=== PATIENT | female | born 2000 | race Hispanic/Latino ===

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

== ENCOUNTER 2021-12-16 19:53 | Emergency (ER) | payer OTHER ==
[2021-12-16] MEDS ORDERED: ONDANSETRON 4 MG/2 ML VIAL ONE (20:48)
[2021-12-16] MEDS ORDERED: LIDOCAINE VISCOUS 2% SOLN 15 ML UDC ONE (20:48)
[2021-12-16] MEDS ORDERED: MAGNES/ALUMIN/SIMET 30ML UCUP ONE (20:50)
[2021-12-16 21:02] LABS: Hematocrit 37.8 % (36.0-45.0)
[2021-12-16 21:03] LABS: Absolute Lymphocytes (CBC) 1.7 K/uL (0.7-4.9); Lymphocytes % 32.5 % (15.3-44.8); MPV 7.7 fL (7.6-11.3)
[2021-12-16 21:27] LABS: ALT/SGPT 17 U/L (12-78); AST/SGOT 16 U/L (15-37); Albumin 3.4 g/dL (3.4-5.0); Alkaline Phosphatase 69 U/L (45-117); BUN Blood Urea Nitrogen 18 mg/dL (7-18); Bicarbonate 26 mmol/L (21-32); Bilirubin Direct < 0.1 mg/dL (0-0.2); Bilirubin Total 0.4 mg/dL (0.2-1.0); Glucose Level 95 mg/dL (74-106); Lipase 83 U/L (73-393); Potassium 3.5 mmol/L (3.5-5.1); Protein, Total 6.8 g/dL (6.4-8.2); Sodium Level 139 mmol/L (136-145)
[2021-12-16 22:53] LABS: Urine Bacteria 20-50 /HPF (<20); Urine RBC <5 /HPF (NONE SEEN); Urine Urothelial Cells <5 /HPF (NONE SEEN)
--- NOTE | 2021-12-16 23:01 | ER ---
Nurse's Notes [facility] Name: Nehemiah Alvarado Age: 21 yrs Sex: Female : 2000 Arrival Date: 12/16/2021 Time: 19:55 Bed 20 Private MD: Diagnosis: Nausea;Abdominal pain, unspecified Presentation: 12/16 20:20 Chief complaint: Patient states: lower abdominal pain; vomiting, feeling sleepy and jh5 nauseous x1 month. Coronavirus screen: Vaccine status: Patient reports being unvaccinated. Client denies travel out of the [place] in the last 14 days. Ebola Screen: Patient negative for fever greater than or equal to 101.5 degrees Fahrenheit, and additional compatible Ebola Virus Disease symptoms Patient denies exposure to infectious person. Patient denies travel to an Ebola-affected area in the 21 days before illness onset. Initial Sepsis Screen: Does the patient meet any 2 criteria? No. Patient's initial sepsis screen is negative. Does the patient have a suspected source of infection? No. Patient's initial sepsis screen is negative. Risk Assessment: Do you want to hurt yourself or someone else? Patient reports no desire to harm self or others. Onset of symptoms was November 2021. 20:20 Method Of Arrival: Ambulatory [facility] 20:20 Acuity: RENEE 3 jh5 Triage Assessment: 20:23 General: Appears in no apparent distress. comfortable, slender, well groomed, well jh5 developed, Behavior is calm, cooperative, appropriate for age. Pain: Complains of pain in abdomen. 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 - Social history:: Smoking status: Patient denies any tobacco usage or history of. Patient uses street drugs, marijuana. - Family history:: not pertinent. - Hospitalizations: : No recent hospitalization is reported. Screenin:33 Abuse screen: Denies threats or abuse. Denies injuries from another. Nutritional lg3 screening: No deficits noted. Tuberculosis screening: No symptoms or risk factors identified. Fall Risk None identified. Assessment: 20:33 General: Appears in no apparent distress. comfortable, Behavior is calm, cooperative, lg3 Denies pain at this time but reports generalized abdominal pain earlier today. Neuro: No deficits noted. Level of Consciousness is awake, alert, obeys commands, Oriented to person, place, time, situation, Gait is steady, Speech is normal. Cardiovascular: No deficits noted. Capillary refill < 3 seconds JVD is absent Patient's skin is warm and dry. Respiratory: No deficits noted. Airway is patent Trachea midline Respiratory effort is even, unlabored, Respiratory pattern is regular, symmetrical. GI: Abdomen is flat, non-distended, Bowel sounds present X 4 quads. Reports nausea, vomiting. : No deficits noted. No signs and/or symptoms were reported regarding the genitourinary system. EENT: No deficits noted. No signs and/or symptoms were reported regarding the EENT system. Derm: No deficits noted. No signs and/or symptoms reported regarding the dermatologic system. Skin is intact, is healthy with good turgor, Skin is dry. Musculoskeletal: No deficits noted. No signs and/or symptoms reported regarding the musculoskeletal system. Circulation, motion, and sensation intact. Range of motion: intact in all extremities. 21:16 Reassessment: Patient appears in no apparent distress at this time. No changes from lg3 previously documented assessment. Patient and/or family updated on plan of care and expected duration. Pain level reassessed. Patient is alert, oriented x 3, equal unlabored respirations, skin warm/dry/pink. 23:11 Reassessment: Patient appears in no apparent distress at this time. No changes from lg3 previously documented assessment. Patient and/or family updated on plan of care and expected duration. Pain level reassessed. Patient is alert, oriented x 3, equal unlabored respirations, skin warm/dry/pink. Patient denies pain at this time. Patient states feeling better. Patient states symptoms have improved. Vital Signs: 20:20 BP 97 / 66; Pulse 95; Resp 18; Temp 98.1; Pulse Ox 99% ; Weight 68.95 kg; Height 5 ft. jh5 8 in. (172.72 cm); Pain 3/10; 20:35 BP 108 / 79; Pulse 69; Resp 18 S; Pulse Ox 96% on R/A; Pain 0/10; lg3 21:20 BP 101 / 68; Pulse 59; Resp 16 S; Pulse Ox 99% on R/A; lg3 23:11 BP 98 / 68; Pulse 57; Resp 18 S; Pulse Ox 100% on R/A; lg3 20:20 Body Mass Index 23.11 (68.95 kg, 172.72 cm) [facility] ED Course: 19:55 Patient arrived in ED. 5 20:23 Triage completed. 5 20:23 Arm band placed on right wrist. 5 20:29 Ema Hernandez, RN is Primary Nurse. lg3 20:31 Dylan Quintero MD is Attending Physician. rn 20:33 Patient has correct armband on for positive identification. Bed in low position. Call lg3 light in reach. Side rails up X 1. 20:55 Initial lab(s) drawn, by fl, sent to lab. Inserted saline lock: 22 gauge in right lt3 antecubital area, using aseptic technique. 20:57 Basic Metabolic Panel Sent. lg3 20:57 CBC with Diff Sent. lg3 20:57 Hepatic Function Sent. lg3 20:57 Lipase Sent. lg3 21:49 Urine Microscopic Only Sent. lg3 22:04 CT Abd/Pelvis - IV Contrast Only In Process Unspecified. EDMS 23:12 No provider procedures requiring assistance completed. IV discontinued, intact, lg3 bleeding controlled, No redness/swelling at site. Pressure dressing applied. Administered Medications: 20:56 Drug: Zofran (Ondansetron) 4 mg Route: IVP; Site: right antecubital; lg3 20:56 Follow up: Response: No adverse reaction lg3 20:56 Drug: GI Cocktail without - (Maalox Suspension 30 ml, Lidocaine Liquid 2 % 15 lg3 ml) Route: PO; 20:56 Follow up: Response: No adverse reaction lg3 Outcome: 23:01 Discharge ordered by . rn 23:12 Discharged to home ambulatory. lg3 23:12 Condition: improved 23:12 Discharge instructions given to patient, Instructed on discharge instructions, follow up and referral plans. 23:13 Patient left the ED. lg3 Signatures: Dispatcher [employer] EDMS Dylan Quintero MD MD rn Gibson, Lacie RN COLIN lg3 Racquel Parrish RN RN 5 Anisa Hernandez 5 Jesenia Fernandez lt3 Corrections: (The following items were deleted from the chart) 20:38 20:33 General: Appears in no apparent distress. comfortable, Behavior is calm, lg3 cooperative, lg3 20:38 20:33 Pain: Denies pain. lg3 lg3
--- NOTE | 2021-12-16 23:01 | EDPHYS ---
Physician Documentation [facility] Name: Nehemiah Alvarado Age: 21 yrs Sex: Female : 2000 Arrival Date: 12/16/2021 Time: 19:55 Bed 20 Private MD: ED Physician Dylan Quintero HPI: 12/16 21:17 This 21 yrs old Female presents to ER via Ambulatory with complaints of nausea rn x 1 month. 21:17 The patient presents to the emergency department with nausea. Onset: The rn symptoms/episode began/occurred 1 month(s) ago. Possible causes: unknown. The symptoms are aggravated by nothing. The symptoms are alleviated by nothing. Associated signs and symptoms: Pertinent positives: nausea, vomiting, Pertinent negatives: fever, GI bleeding, hematuria. Severity of symptoms: At their worst the symptoms were mild in the emergency department the symptoms are unchanged. The patient has not experienced similar symptoms in the past. The patient has not recently seen a physician. Pt reports 1-2 months of nausea, threw up today for first time, denies obvious pattern. No fever. Reports upper abd pain. + suffers from acid reflux. Reports just finished last menstrual period. NO trauma. Reports came today because she threw up today and hadn't before. . 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 - Social history:: Smoking status: Patient denies any tobacco usage or history of. Patient uses street drugs, marijuana. - Family history:: not pertinent. - Hospitalizations: : No recent hospitalization is reported. ROS: 21:17 Constitutional: Negative for fever, chills, and weight loss, Eyes: Negative for injury, rn pain, redness, and discharge, Neck: Negative for injury, pain, and swelling, Cardiovascular: Negative for chest pain, palpitations, and edema, Respiratory: Negative for shortness of breath, cough, wheezing, and pleuritic chest pain, Abdomen/GI: Negative for diarrhea, and constipation Back: Negative for injury and pain, : Negative for injury, bleeding, discharge, and swelling, MS/Extremity: Negative for injury and deformity, Skin: Negative for injury, rash, and discoloration, Neuro: Negative for headache, weakness, numbness, tingling, and seizure. Exam: 21:17 Constitutional: This is a well developed, well nourished patient who is awake, alert, rn and in no acute distress. Head/Face: Normocephalic, atraumatic. Eyes: Periorbital areas with no swelling, redness, or edema. ENT: Mucous membranes moist. Cardiovascular: Regular rate and rhythm. No pulse deficits. Respiratory: No increased work of breathing, no retractions or nasal flaring. Abdomen/GI: Soft, mild periumbilical and epigastric tenderness, no rebound Skin: Warm, dry MS/ Extremity: Pulses equal, no cyanosis. Neuro: Awake and alert, GCS 15 Vital Signs: 20:20 BP 97 / 66; Pulse 95; Resp 18; Temp 98.1; Pulse Ox 99% ; Weight 68.95 kg; Height 5 ft. 5 8 in. (172.72 cm); Pain 3/10; 20:35 BP 108 / 79; Pulse 69; Resp 18 S; Pulse Ox 96% on R/A; Pain 0/10; lg3 21:20 BP 101 / 68; Pulse 59; Resp 16 S; Pulse Ox 99% on R/A; lg3 23:11 BP 98 / 68; Pulse 57; Resp 18 S; Pulse Ox 100% on R/A; lg3 20:20 Body Mass Index 23.11 (68.95 kg, 172.72 cm) 5 MDM: 20:32 Patient medically screened. rn 23:00 Differential diagnosis: Nonspecific abd pain, appendicitis, diverticulitis, viral rn gastroenteritis, gastroenteritis, , acid reflux. Data reviewed: vital signs, nurses notes, lab test result(s), radiologic studies, CT scan, and as a result, I will discharge patient. Counseling: I had a detailed discussion with the patient and/or guardian regarding: the historical points, exam findings, and any diagnostic results supporting the discharge/admit diagnosis, lab results, radiology results, the need for outpatient follow up, to return to the emergency department if symptoms worsen or persist or if there are any questions or concerns that arise at home. Response to treatment: the patient's symptoms have markedly improved after treatment, and as a result, I will discharge patient. Special discussion: Based on the patient's Hx, exam, and Dx evaluation, there is no indication for emergent surgery or inpatient Tx. It is understood by the patient/guardian that if the Sx's persist or worsen they need to return immediately for re-evaluation. I discussed with the patient/guardian in detail that at this point there is no indication for admission to the hospital. It is understood, however, that if the symptoms persist or worsen the patient needs to return immediately for re-evaluation. 12/16 20:39 Order name: Basic Metabolic Panel; Complete Time: 22:12 rn 12/16 20:39 Order name: CBC with Diff; Complete Time: 21:17 rn 12/16 20:39 Order name: Hepatic Function; Complete Time: 22:12 rn 12/16 20:39 Order name: Lipase; Complete Time: 22:12 rn 12/16 20:39 Order name: Urine Microscopic Only; Complete Time: 22:59 rn 12/16 22:04 Order name: Urine --Ancillary (enter results); Complete Time: 22:59 cs9 12/16 20:39 Order name: IV Saline Lock; Complete Time: 20:55 rn 12/16 20:39 Order name: Labs collected and sent; Complete Time: 20:55 rn 12/16 20:39 Order name: Urine Dipstick-Ancillary (obtain specimen); Complete Time: 21:49 rn 12/16 20:39 Order name: Urine Test (obtain specimen); Complete Time: 21:49 rn 12/16 20:39 Order name: CT Abd/Pelvis - IV Contrast Only rn 12/16 22:55 Order name: Urine Culture EDMS Administered Medications: 20:56 Drug: Zofran (Ondansetron) 4 mg Route: IVP; Site: right antecubital; lg3 20:56 Follow up: Response: No adverse reaction lg3 20:56 Drug: GI Cocktail without - (Maalox Suspension 30 ml, Lidocaine Liquid 2 % 15 lg3 ml) Route: PO; 20:56 Follow up: Response: No adverse reaction lg3 Disposition Summary: 12/16/21 23:01 Discharge Ordered Location: Home rn Problem: an ongoing problem rn Symptoms: have improved rn Condition: Stable rn Diagnosis - Nausea rn - Abdominal pain, unspecified rn Followup: rn - With: Private Physician - When: As needed - Reason: Recheck today's complaints, Re-evaluation by your physician Discharge Instructions: - Discharge Summary Sheet rn - Abdominal Pain, Adult rn - Nausea, Adult rn - Pain Without a Known Cause rn Forms: - Medication Reconciliation Form rn - Thank You Letter rn - Antibiotic color checker roving or yarn - Prescription Opioid Use rn - Work release form cs9 Signatures: Dispatcher [employer] Dylan Quevedo MD MD rn Gibson, Lacie RN RN lg3 Racquel Parrish RN RN jh5
[2021-12-17 07:38] VITALS: TEMP 98.1
[2021-12-17 07:42] VITALS: BP 98/68; O2SAT 100
--- NOTE | 2021-12-17 11:00 | RAD REPORT ---
EXAM DESCRIPTION: CT - Abdomen Pelvis W Contrast - 12/17/2021 6:30 am COMPARISON: None CLINICAL HISTORY: Abdominal pain, nausea vomiting TECHNIQUE: Multiple helical axial images were obtained through the abdomen and pelvis using intraven ous contrast. Coronal and sagittal reformatted images were obtained. All CT scans at this facility use dose modulation, iterative reconstruction, and/or weight-based dosi ng when appropriate to reduce radiation dose to as low as reasonably achievable. FINDINGS: Lung bases: Appear unremarkable. Liver: Homogenous attenuation is noted. Gallbladder/biliary: Appears unremarkable Pancreas: Unremarkable. No evidence of ductal enlargement. Spleen: Appears unremarkable. No splenomegaly. Adrenals: Unremarkable. Kidneys and ureters: No evidence of hydronephrosis. Normal enhancement. Bladder: Unremarkable. Pelvic organs: There is a 3 cm hypodense, thin-walled fluid density cyst in the left ovary. Bowel: No evidence of bowel obstruction. No bowel wall thickening. Appendix appears unremarkable. Vasculature: Unremarkable. Peritoneum: No free air. There is trace nonspecific free fluid in the pelvis. Lymph nodes: Unremarkable. Soft tissues: Unremarkable. Bones: No acute fracture. Small posterior central disc protrusions at L3-L4 and L4-L5 noted. IMPRESSION: 1. No evidence for an acute process within the abdomen or pelvis. 2. Small left ovarian cyst measuring up to 3 cm, likely physiologic. Electronically signed by: Rigoberto Reilly MD 12/16/2021 10:42 PM DIRECTOR [facility] Due to temporary technical issues with the PACS/Fluency reporting system, reports are being signed by the in house radiologist without review as a courtesy to ensure prompt reporting. The interpreting r adiologist is fully responsible for the content of the report.
== END 2021-12-16 23:13 | disposition home or self-care (01) ==
LOC: ER 19:53
DX: R11.0 Nausea (principal); R10.9 Unspecified abdominal pain
CPT/HCPCS: 87088; 85025; 87086; 80048; 36415; 81025; 80076; 81015; 83690; 74177; Q9967; J2405; 96374; 99284